=== PATIENT | male | born 1960 | race Hispanic/Latino ===

== ENCOUNTER 2016-06-14 09:07 | Emergency (ER) | payer BC ==
[~2016-06-14] VITALS: Ht 175.3 cm; Wt 203.5 kg
[~2016-06-14 09:07] MED LIST: ASPIRIN E.C.81 M1 PO; Bactrim,Septra DS 80 PO; Calan PO; Cozaar PO; ENDOCET 5-3251 EACH PO; Glucophage PO; Glucotrol PO; Hydrodiuril,Oretic,E PO; Silvadene,SSD,Therma TP; THERAGRAN1 TABLET PO; Vitamin B-12 PO; Zocor PO
[2016-06-14 09:34] VITALS: BP 181/81
== END 2016-06-14 11:28 | disposition left against medical advice (07) ==
LOC: EME 09:07
DX: R05 Cough (principal); J02.9 Acute pharyngitis, unspecified; R51 Headache; Z53.21 Procedure and treatment not carried out due to patient leaving prior to being seen by health care provider

== ENCOUNTER → 2016-10-02 | Outpatient (CLI) | payer OTHER | END | disposition home or self-care (01) | LOC: RAD 09:19 | DX: Z02.71 Encounter for disability determination (principal) | CPT/HCPCS: 73560 ==